=== PATIENT | female | born 2000 | race Caucasian/White ===

== ENCOUNTER 2021-10-06 08:25 | Outpatient (CLI) | payer BC, SELFPAY ==
[2021-10-09 00:06] LABS: QNTFERON TB Mitogen Value > 10.00 IU/mL (.); QNTFERON TB Nil Value 0.04 IU/mL (.); QNTFERON TB1+ Ag Value 0.04 IU/mL (.); QNTFERON TB2+ Ag Value 0.05 IU/mL (.)
[2021-10-09 16:14] LABS: QNTIFERON TB Positive Criteria Negative (Negative)
== END 2021-10-06 23:59 | disposition home or self-care (01) ==
PROVIDERS: Visit Provider Student in an Organized Health Care Education/Training Program
DX: Z01.84 Encounter for antibody response examination (principal)
CPT/HCPCS: 36415; 86480

== ENCOUNTER 2022-07-24 09:14 | Emergency (ER) | payer BC, SELFPAY ==
[2022-07-24 09:16] VITALS: BP 127/75; PULSE 59; RESP 14; TEMP 36.7; O2SAT 100; BMI 25.1
--- NOTE | 2022-07-24 10:30 | EX.ED.VIS.EY ---
HPI History of Present Illness Chief Complaint: Eye Problem Informant: patient Onset/Context/Timing Location: Left Eye Onset: Days Context: Gradual Onset Timing: Continuous Worsened by: Nothing Relieved by: Ice Associated Symptoms Associated Symptoms - Eyes: Crusting, Drainage, Eyelid swelling and Redness History of injury: Uncertain Visual correction: None Narrative Narrative: Patient presents with redness and swelling around her left eye that has been getting worse over the last 4 days. [facility] and was given a prescription for cephalexin. Patient has been taking this with no improvement. Patient does admit to some mild matting and crusting of her eye. Patient denies any fevers or chills. Patient denies any visual changes. Patient is unsure if something got into her eye a few days ago. Patient also has a rash over her right hip area. Patient states this began about the same time that her eye redness and swelling started. PFSH PFSH Medical History no medical history no medical history Home Medications sulfacetamide sodium 10 % eye drops 1 drp ophthalmic (eye) Q3H 7 days #15 mL 07/22/22 [Rx Last Taken Unknown] amoxicillin 875 mg-potassium clavulanate 125 mg tablet 875 mg PO Q12H #20 TABLETS 07/24/22 [Rx Last Taken Unknown] Allergy/AdvReac Type Severity Reaction Status Date / Time No Known Allergies Allergy Verified 07/24/22 09:16 Surgical History no surgical history no surgical history Social History Smoking Status: Never smoker ROS ROS ED Constitutional Constitutional ED: Denies chills or fever(s) Eyes Eyes: Denies blurry vision or change in vision ENT ENT ED: Denies rhinorrhea or sore throat Cardiovascular Cardiovascular: Denies chest pain or palpitations Respiratory/Chest Respiratory/Chest: Denies cough or dyspnea Gastrointestinal Gastrointestinal: Denies nausea or vomiting Genitourinary Genitourinary ED: Denies dysuria or hematuria Musculoskeletal Musculoskeletal: Denies back pain or neck pain Integumentary Reports rash; Denies abscess Neurologic Neurologic: Denies headache(s) or weakness Allergic/Immunologic Allergic/Immunologic ED: Denies mouth swelling or urticaria EXAM Physical Exam Const Vital Signs: 07/24/22 09:16 Temperature 98.0 F Temperature Source Temporal Pulse Rate 59 L Respiratory Rate 14 Blood Pressure 127/75 H Blood Pressure Mean 92 Pulse Ox 100 Oxygen Delivery Method Room Air Positive well nourished and well developed General Appearance ED: well developed and NAD HEENT atraumatic Eyes Eyes Narrative: Pupils are equal, round, and reactive to light bilaterally. Extraocular muscles are intact. Conjunctiva is clear. Anterior chamber is clear. There is no hyphema. There is edema and erythema of the upper and lower eyelids on the left. There is mild tenderness. There are no foreign bodies visualized. There is no matting or crusting. There is no discharge or drainage. There is no pain with extraocular motion. Neck supple and no JVD Resp normal respiratory effort and clear to auscultation bilaterally Cardio regular rate and regular rhythm Neuro oriented x3, CN's II-XII intact bilaterally, moves all extremities and no sensory deficits noted Sensorium / Orientation: alert Motor Exam: strength 5/5 throughout Skin Skin Narrative: There is a small maculopapular rash over the right iliac crest area. There are no vesicles or pustules. There is no discharge or drainage. There are no petechia. There is no involvement of the mucous membranes. MDM MDM MDM Narrative Medical decision making narrative: Patient was given dose of Ancef here. Tetracaine and fluorescein dye was applied to the left eye. Under slit-lamp examination, there is no corneal abrasion or ulcer noted. Anterior chamber was clear. There is no hyphema. There is no cell or flare. There are no foreign bodies noted. CBC and comprehensive metabolic profile were obtained and were within normal limits. Serum hCG was negative. CT scan of the orbits was obtained. There is preseptal cellulitis and swelling. There is no orbital cellulitis. There is no evidence of any abscess. This was interpreted by the radiologist and reviewed by myself. Patient is feeling better. Patient was instructed to stop taking the cephalexin. Patient was given a prescription for Augmentin. Patient was instructed to follow-up with her primary care physician in 5 to 7 days. Patient understood and was agreeable with the plan. All questions were answered. Lab Data Attestation: I reviewed the patient's lab results. Discharge Plan Triage Chief Complaint: Eye Problem ED Provider: Damian Gonzalez Dx/Rx/DC Orders Clinical Impression: Periorbital cellulitis of left eye Instructions: ED Cellulitis, Facial Prescriptions: New amoxicillin-pot clavulanate [amoxicillin-pot clavulanate] 875-125 mg tablet 875 mg PO Q12H Qty: 20 0RF Discontinued cephalexin 500 mg capsule 500 mg PO Q12H 7 Days Qty: 14 0RF No Action sulfacetamide sodium 10 % drops 1 drp ophthalmic (eye) Q3H 7 Days Qty: 15 0RF Primary Care Provider: Damian Ventura Referrals: Damian Ventura, [Primary Care Provider] - 3-5 Days Disposition Disposition: Home, Self Care
--- NOTE | 2022-07-24 10:36 | CT_ITS ---
EXAM: CT ORBITS WITH INTRAVENOUS CONTRAST CLINICAL INDICATION: Edema -- Periorbital cellulitis versus orbital cellulitis TECHNIQUE: Helically acquired images were obtained of the orbits. Multiplanar reformations were reviewed. Study was performed with intravenous contrast. This CT exam was performed using one or more of the following dose reduction techniques: automated exposure control, adjustment of the mA and/or kV according to patient size, and/or use of iterative reconstruction technique. This report was created using [employer] report [employer] technology. CONTRAST: IV 100mL Isovue-370 COMPARISON: None. FINDINGS: ORBITS: Both globes are unremarkable. Extraocular muscles are normal. Retrobulbar fat appears unremarkable. SINUSES: Unremarkable as visualized. No acute sinusitis. BONES/JOINTS: No acute fracture. SOFT TISSUES: Left facial soft tissue edema noted. There is preseptal soft tissue thickening of the left orbit. No evidence of soft tissue abscess. CT/Orb Sella Post Fossa Ear W/CON IMPRESSION: Left facial and preseptal left orbital edema. No evidence of abscess. Normal intraorbital structures. Electronically Signed: Christofer Elkins MD at 11:25 EDT ,
[2022-07-24 10:59] LABS: Absolute Lymphocyte Count 1.81 X10^3/uL (0.83-4.51); Basophil# 0.06 X10^3/uL; Basophil% 1.1 % (0-1); Eosinophil# 0.25 X10^3/uL; Eosinophils% 4.5 % (0-5); Hematocrit 37.3 % (37-47); Hemoglobin 12.5 g/dL (12.0-15.0); Lymphocyte # 1.81 X10^3/ul (0.83-4.51); Lymphocyte % 32.3 % (19-41); Mean Corp Hgb Conc 33.5 g/dL (32-36); Mean Corpuscular Hgb 30.3 pg (27.0-32.0); Mean Corpuscular Volume 90.3 fL (81-99); Mean Platelet Vol. 9.5 fl (6.2-12.0); Monocyte# 0.44 X10^3/uL; Monocyte% 7.9 % (0-10); NRBC Flagged by Analyzer 0 % (0-5); Neutrophil # 3.03 X10^3/uL (2.7-7.7); Platelet Count 192 K/mm3 (150-450); RBC Distribution Width CV 12.3 % (11.6-14.6); RBC Distribution Width SD 40.6 fl (35.1-43.9); Red Blood Count 4.13 M/mm3 (4.2-5.4); White Blood Count 5.6 K/mm3 (4.4-11.0)
[2022-07-24 11:06] LABS: Internal QC Validated? YES +Cl - CLEAR BKGD; Pregnancy, Serum, hCG Quali. NEGATIVE Negative
[2022-07-24 11:16] LABS: ALB/GLOB Ratio 1.4 RATIO (0.9-2.4); AST(SGOT) 18 U/L (15-37); Alanine Aminotransfer ALT/SGPT 35 U/L (13-56); Albumin, Serum 3.8 g/dL (3.2-5.0); Alkaline Phosphatase 50 U/L (45-117); Anion Gap 4 (5-15); BUN 15 mg/dL (7-18); BUN/Creat Ratio 17.7 RATIO (10-20); Chloride 110 mmol/L (98-107); Creatinine, Serum 0.85 mg/dL (0.55-1.02); EST Glomerular Filtration Rate 89 mL/min (>60); Est Glom Filt Rate - Afr Amer 108 mL/min (>60); Estimated Creatinine Clearance 93.42 ml/min; Globulin 2.8 g/dL (2.2-4.2); Glucose 95 mg/dL (74-106); Potassium 4.2 mmol/L (3.5-5.1); Protein, Total 6.6 g/dL (6.4-8.2); Sodium Level 141 mmol/L (136-145)
[2022-07-24] MEDS: Fluorescein 1 MG STRIP 1 STRIP OPHTHALMIC (11:24)
[2022-07-24] MEDS: Cefazolin 1 GM/50 ML BAG IV (11:25)
[2022-07-24] MEDS: Tetracaine 0.5% Ophthalmic Bottle 1 DRP OPHTHALMIC (11:25)
== END 2022-07-24 12:32 | disposition home or self-care (01) ==
PROVIDERS: Emergency Provider Emergency Medicine; PCP Student in an Organized Health Care Education/Training Program; Visit Provider Emergency Medicine
DX: L03.213 Periorbital cellulitis (principal); R21 Rash and other nonspecific skin eruption
CPT/HCPCS: 70481; 80053; 84703; 85025; 96365; 99284; Q9967; A4216

== ENCOUNTER → 2022-11-07 | Outpatient (CLI) | payer BC, SELFPAY ==
[2022-11-07 10:26] LABS: Absolute Lymphocyte Count 1.65 X10^3/uL (0.83-4.51); Absolute Neutrophil Count 3.3 X10^3/uL (2.0-7.7); Basophil# 0.07 X10^3/uL; Basophil% 1.3 % (0-1); Eosinophil# 0.13 X10^3/uL; Eosinophils% 2.4 % (0-5); Hematocrit 35.8 % (37-47); Hemoglobin 11.9 g/dL (12.0-15.0); Lymphocyte # 1.65 X10^3/ul (0.83-4.51); Lymphocyte % 30.4 % (19-41); Mean Corp Hgb Conc 33.2 g/dL (32-36); Mean Corpuscular Volume 93.2 fL (81-99); Monocyte# 0.27 X10^3/uL; NRBC Flagged by Analyzer 0 % (0-5); Neutrophil % 60.7 % (47-70); Platelet Count 208 K/mm3 (150-450); RBC Distribution Width SD 40.8 fl (35.1-43.9); Red Blood Count 3.84 M/mm3 (4.2-5.4); White Blood Count 5.4 K/mm3 (4.4-11.0)
[2022-11-07 11:18] LABS: ALB/GLOB Ratio 1.4 RATIO (0.9-2.4); AST(SGOT) 19 U/L (15-37); Alanine Aminotransfer ALT/SGPT 25 U/L (13-56); Albumin, Serum 4.2 g/dL (3.2-5.0); Alkaline Phosphatase 47 U/L (45-117); Anion Gap 7 (5-15); BUN 14 mg/dL (7-18); BUN/Creat Ratio 15.6 RATIO (10-20); Calcium,Total 9.2 mg/dL (8.5-10.1); Chloride 107 mmol/L (98-107); Cholesterol 182 mg/dL (200); EST Glomerular Filtration Rate 83 mL/min (>60); Est Glom Filt Rate - Afr Amer 101 mL/min (>60); Globulin 2.9 g/dL (2.2-4.2); Glucose 94 mg/dL (74-106); High Density Lipoprotein 83 mg/dL; Potassium 3.9 mmol/L (3.5-5.1); Protein, Total 7.1 g/dL (6.4-8.2); Sodium Level 140 mmol/L (136-145); Thyroid Stim Hormone (TSH) 2.97 uIU/mL (0.358-3.74); Triglycerides 38 mg/dL; Very Low Density Lipoprotein 8 mg/dL (5-40)
[2022-11-09 22:07] LABS: QNTFERON TB Mitogen Value > 10.00 IU/mL (.); QNTFERON TB Nil Value 0.13 IU/mL (.); QNTFERON TB1+ Ag Value 0.02 IU/mL (.); QNTFERON TB2+ Ag Value 0.02 IU/mL (.)
[2022-11-11 18:57] LABS: QNTIFERON TB Positive Criteria Negative (Negative)
== END | disposition home or self-care (01) ==
LOC: LAB 09:56
PROVIDERS: PCP Student in an Organized Health Care Education/Training Program; Referring Provider Student in an Organized Health Care Education/Training Program; Visit Provider Student in an Organized Health Care Education/Training Program
DX: Z01.84 Encounter for antibody response examination (principal)
CPT/HCPCS: 36415; 80053; 80061; 84443; 85025; 86480

== ENCOUNTER → 2023-09-30 | Outpatient (CLI) | payer BC, SELFPAY ==
--- OUTSIDE RECORDS SUMMARY | 2023-09-30 07:52 | XMS RPT_ITS | CCD ---
Author Name Unknown Address [address] [place] [address] Organization [facility] Care Team Providers Care Molding Sander Name Role Phone Rishi Venturaic Unavailable Unavailable Ericzner Damian C Unavailable Unavailable Ericzner Damian C Primary Care Provider [phone] Damian Ventura Unavailable Unavailable Medications Completed/Discontinued Medications Medication Drug Class(es) Dates Sig (Normalized) Sig (Original) 200 actuat albuterol 0.09 mg/actuat metered dose inhaler (1 source) beta2-Adrenergic Agonist Start: 04-08-2019 take 2 puff(s) by inhalation every six hours ProAir HFA 108 (90 Base) MCG/ACT Inhalation Aerosol Solution USE 2 PUFFS EVERY 6 HOURS DIRECTED. Quantity: 1 Refills: 2 Ericzner Damian FARIAS Start : 08-Apr-2019 Active 8.5 GM Inhaler No Reported Medications (1 source) No Reported Medications Refills: 0 Active Problems Problem Classification Problem Date Documented Da te Episodic/Chronic Immunizations and screening for infectious disease (1 source) Immunization due; Translations: [Need for prophylactic vaccination and inoculation against unspecified single disease] Episodic Residual codes; unclassified (4 sources) Immunization due; Translations: [Immunization due] NEGATED: Highlighted row has not occurred!Residual codes; unclassified (14 sources) Disease Episodic Results Test Name Value Interpretation Reference Range Facil ity Vital Signs Date Time Vital Sign Value Performing Clinician Faci lity 10-04-2019 11:05-0500 BMI (Body Mass Index) 24.46 kg/m2 Damian Ventura [employer] Work Phone: 10-04-2019 11:05-0500 Body weight 66.68 kg Damian Ventura [facility] [employer] Work Phone: 10-04-2019 11:05-0500 BP Diastolic 58 mm[Hg] Damian Panzner [facility] Work Phone: 10-04-2019 11:05-0500 BP Systolic 110 mm[Hg] Damian Panzner [facility] Work Phone: 10-04-2019 11:05-0500 BSA (Body Surface Area) 1.74 m2 Damian Panzner [facility] Work Phone: 10-04-2019 11:05-0500 Height 165.1 cm Damian Panzner [facility] Work Phone: 10-04-2019 11:05-0500 Pulse (Heart Rate) 68 /min Damian Panzner [facility] Work Phone: 10-04-2019 11:05-0500 78 1 Damian Panzner [facility] Work Phone: Encounters Encounter Date Encounter Type Care Provider Facility Start: 09-29-2020 End: 09-29-2020 Patient encounter procedure Damian C Ericzner Work Phone: [facility] Start: 09-29-2020 Results Only Damian C Ericzner Work Phone: [facility] Start: 11-22-2019 Nursing evaluation o f patient and report Damian Ericzner [facility] Work Phone: Start: 10-04-2019 Patient encounter procedure Damian Panzner [facility] Work Phone: Start: 04-08-2019 Patient encounter procedure Damian Panzner [facility] Work Phone: Start: 12-21-2017 Patient encounter procedure Damian Ericzner -[facility] Work Phone: Procedures Date Procedure Procedure Detail Performing Clinician Start: 09-29-2020 BLOOD TB SCREEN, INCUBATED Damian C Emilieer Work Phone: Start: 09-29-2020 CBC + DIFF Damian C Reyes zner Work Phone: Start: 09-29-2020 HEP B SURF AB QUANT Socorro c C Panzner Work Phone: Start: 09-29-2020 HEP B SURF AG CONFRM Er ic C Ericzner Work Phone: Start: 09-29-2020 LIPID PANEL BASIC Damian C Emilieer Work Phone: Start: 09-29-2020 SARS-COV-2 ANTIBODY, IGG Damian C Emilieer Work Phone: Start: 09-29-2020 TSH BLD Damian C Eric zner Work Phone: Start: 09-29-2020 VARICELLA ZOSTER IGG Er ic C Ericzner Work Phone: Start: 10-04-2019 Mycobacterium tuberc ulosis stimulated gamma interferon [Interpretation] in Blood Qualitative Damian Emilierishi Start: 10-04-2019 Follow-up visit Start: 09-06-2019 Blood count complete auto&auto difrntl wbc Damian Panzner Start: 09-06-2019 Comprehensive metabo lic 2000 panel Damian Panzner Start: 09-06-2019 Lipid panel Damian Panzn er Start: 09-06-2019 TSH WITH REFLEX TO F REE T4 IF ABNORMAL Damian Ericzner Start: 04-08-2019 Follow-up visit Plan of Treatment Date Care Activity Detail Author Start: 12-22-2027 Urine microalbumin profile DTAP,TDAP ,TD (2 - Td) [facility] Start: 05-26-2020 Influenza vaccination INFLUENZA (#1) [facility] Start: 2018 CHLAMYDIA SCREENING (18-) CHLAMYDIA SCREENING (18-24) [facility] Start: 2018 GC (GONORRHEA) SCREE BENNY (18-24) GC (GONORRHEA) SCREENING (18-24) [facility] Start: 2018 HEPATITIS C SCREENING HEPATITIS C SC BRIJESHNING [facility] Start: 2018 HIV SCREENING HIV SCREENING [facility] Start: 2011 HPV VACCINE (1 - 2-d ose series) HPV VACCINE (1 - 2-dose series) [facility] Start: 2010 MENINGOCOCCAL B: Con education and training coordinator based on risk (1 of 2 - Risk Bexsero 2-dose series) MENINGOCOCCAL B: Consider based on risk (1 of 2 - Risk Bexsero 2-dose series) [facility] Immunizations Immunization Date Immunization Notes Care Provider Avery lacy 05-05-2020 hepatitis B vaccine, pediatric or pediatric/adolescent dosage Damian Ventura [facility] 11-22-2019 hepatitis B vaccine, pediatric or pediatric/adolescent dosage; Translations: [Hepatitis B, Ped/Adol] [facility] Work Phone: 11-22-2019 measles, mumps and rubella virus vaccine; Translations: [MMR] [facility] Work Phone: 10-04-2019 measles, mumps and rubella virus vaccine; Translations: [MMR] [facility] Work Phone: 10-04-2019 hepatitis B vaccine, pediatric or pediatric/adolescent dosage; Translations: [Hepatitis B, Ped/Adol] [facility] Work Phone: 12-21-2017 tetanus toxoid, redu mallorie diphtheria toxoid, and acellular pertussis vaccine, adsorbed; Translations: [Tdap (Adacel)] [facility] Work Phone: Payers Date Payer Category Payer Unknown MMO MMO [employer] [id number] 2019-Present PPO 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 (finding) [facility] Start: 2000 Sex Assigned At Not on file C [facility] Exposure to SARS-CoV-2 (event) Not sure [facility] NEGATED: Highlighted row - - [employer] Work Phone: Functional Status Date Assessment Result Facility NEGATED: Highlighted row Functional performance Functional status health issues are not documented Disease [employer] Work Phone: Mental Status Date Assessment Result Facility NEGATED: Highlighted row Cognitive function [Interpretation] Cognitive status health issues are not documented Disease [employer] Work Phone: Instructions Note Date & Type Note Facility [employer] Work Phone: Family History Grandmother Name Dates Details Family history of hypertensi on(V17.49, Z82.49) Status:Active Grandmother Name Dates Details Family history of cardiac di sorder(V17.49, Z82.49) Status:Active Family history of cardiac pa cemaker(V17.49, Z82.49) Status:Active Grandmother Name Dates Details Family history of hypertensi on(V17.49, Z82.49) Status:Active Grandmother Name Dates Details Family history of cardiac di sorder(V17.49, Z82.49) Status:Active Family history of cardiac pa cemaker(V17.49, Z82.49) Status:Active Grandmother Name Dates Details Family history of hypertensi on(V17.49, Z82.49) Status:Active Grandmother Name Dates Details Family history of cardiac di sorder(V17.49, Z82.49) Status:Active Family history of cardiac pa cemaker(V17.49, Z82.49) Status:Active Grandmother Name Dates Details Family history of hypertensi on(V17.49, Z82.49) Status:Active Grandmother Name Dates Details Family history of cardiac di sorder(V17.49, Z82.49) Status:Active Family history of cardiac pa cemaker(V17.49, Z82.49) Status:Active Grandmother Name Dates Details Family history of hypertensi on(V17.49, Z82.49) Status:Active Grandmother Name Dates Details Family history of cardiac di sorder(V17.49, Z82.49) Status:Active Family history of cardiac pa cemaker(V17.49, Z82.49) Status:Active Summary Purpose Advance Directives No Advanced Directives Records FoundNo Advanced Directives Records Found Additional Source Comments INFORMATION SOURCE (unrecogn ized section and content) DATE CREATED AUTHOR AUTHOR'S ORGANLINDA ATION 03/02/2020 [employer] Source Comments (unrecognize d section and content) In the event this informatio n is protected by the Federal Confidentiality of Alcohol and Drug Abuse Patient Records regulations: The Federal rules restrict any use of the information to criminally investigate or prosecute any alcohol or drug abuse patient.[facility] FOR RECORDS PERTAINING TO PATIENTS WHO ARE OR HAVE BEEN ENROLLED IN A CHEMICAL DEPENDENCY/SUBSTANCEABUSE PROGRAM, SOME INFORMATION MAY BE OMITTED. This clinical summary was aggregated from multiple sources. Caution should be exercised in using it in the provision of clinical care. This summary normalizes information from multiple sources, and as a consequence, information in this document may materially change the coding, format and clinical context of patient data. In addition, data may be omitted in some cases. CLINICAL DECISIONS SHOULD BE BASED ON THE PRIMARY CLINICAL RECORDS. [facility]. provides no warranty or guarantee of the accuracy or completeness of information in this document.
[2023-09-30 08:11] LABS: Absolute Lymphocyte Count 1.86 X10^3/uL (0.83-4.51); Absolute Neutrophil Count 3.1 X10^3/uL (2.0-7.7); Basophil# 0.06 X10^3/uL; Basophil% 1.1 % (0-1); Eosinophil# 0.21 X10^3/uL; Eosinophils% 3.8 % (0-5); Hematocrit 39.6 % (37-47); Hemoglobin 13.2 g/dL (12.0-15.0); Lymphocyte # 1.86 X10^3/ul (0.83-4.51); Lymphocyte % 33.5 % (19-41); Mean Corp Hgb Conc 33.3 g/dL (32-36); Mean Corpuscular Hgb 30.3 pg (27.0-32.0); Mean Corpuscular Volume 90.8 fL (81-99); Mean Platelet Vol. 9.7 fl (6.2-12.0); Monocyte# 0.28 X10^3/uL; NRBC Flagged by Analyzer 0 % (0-5); Neutrophil # 3.13 X10^3/uL (2.7-7.7); Neutrophil % 56.2 % (47-70); Platelet Count 208 K/mm3 (150-450); RBC Distribution Width CV 12.6 % (11.6-14.6); RBC Distribution Width SD 41.4 fl (35.1-43.9); Red Blood Count 4.36 M/mm3 (4.2-5.4); White Blood Count 5.6 K/mm3 (4.4-11.0)
[2023-09-30 08:57] LABS: ALB/GLOB Ratio 1.2 RATIO (0.9-2.4); AST(SGOT) 11 U/L (15-37); Alanine Aminotransfer ALT/SGPT 19 U/L (13-56); Albumin, Serum 3.8 g/dL (3.2-5.0); Alkaline Phosphatase 48 U/L (45-117); Anion Gap 3 (5-15); BUN 14 mg/dL (7-18); BUN/Creat Ratio 17.2 RATIO (10-20); Calcium,Total 9.2 mg/dL (8.5-10.1); Chloride 108 mmol/L (98-107); Cholesterol 172 mg/dL (200); Creatinine, Serum 0.82 mg/dL (0.55-1.02); EST Glomerular Filtration Rate 92 mL/min (>60); Est Glom Filt Rate - Afr Amer 112 mL/min (>60); Globulin 3.2 g/dL (2.2-4.2); Glucose 101 mg/dL (74-106); High Density Lipoprotein 66 mg/dL; Potassium 4.1 mmol/L (3.5-5.1); Sodium Level 139 mmol/L (136-145); Thyroid Stim Hormone (TSH) 3.51 uIU/mL (0.358-3.74); Triglycerides 38 mg/dL; Very Low Density Lipoprotein 8 mg/dL (5-40)
[2023-10-04 07:08] LABS: QNTFERON TB Mitogen Value > 10.00 IU/mL (.); QNTFERON TB Nil Value 0.04 IU/mL (.); QNTFERON TB1+ Ag Value 0.03 IU/mL (.); QNTFERON TB2+ Ag Value 0.07 IU/mL (.); QNTIFERON TB Positive Criteria Negative (Negative)
== END | disposition home or self-care (01) ==
LOC: LAB 07:50
PROVIDERS: PCP Student in an Organized Health Care Education/Training Program; Referring Provider Student in an Organized Health Care Education/Training Program; Visit Provider Student in an Organized Health Care Education/Training Program
DX: Z01.84 Encounter for antibody response examination (principal)
CPT/HCPCS: 36415; 80053; 80061; 84443; 85025; 86480

== ENCOUNTER 2023-12-07 08:07 | Day surgery (SDC) | payer BC, SELFPAY ==
[2023-12-07] VITALS (8 sets, daily range): BP systolic 92–122; BP diastolic 54–89; PULSE 63–83; RESP 16–18; TEMP 36.1–36.8; O2SAT 98–100; BMI 25.0
--- NOTE | 2023-12-07 08:14 | HP.PCM_ITS ---
History and Physical Date of Admission: 12/07/23 Date of Service: 11/29/23 MR#: [id number] Acct: [id number] Name: LEEANNE LINDSEY Rep #: [id number] : 2000 Provider: Dr. Barbara Grace MD Age/Sex: 23/F Location: [facility] Status: Signed Intake Vital Signs 11/05/2307:34 11/28/2412:44 Height 5 ft 5 in 5 ft 5 in Weight: 151 lb 6 oz BMI 25.2 BP 122/69 H Blood Pressure Location Rt brachial Position Sitting Respiration 18 Pulse 65 Pulse Source Monitor Temp 97.6 F L Temp Source Temporal Pulse Oximetry (%) 100 Oxygen Delivery Method room air Intake Visit Reasons: Liooma back Chief Complaint: lipoma back Electric Motor Fitter Required: No Accompanied by: Mother Is patient in pain?: No Allergies No Known Allergies Allergy (Verified 11/29/23 13:45) PFSH Surgical History (Updated 11/29/23 @ 13:43 by Mindi Xavier LPN) H/O wisdom tooth extraction Social History (Updated 11/29/23 @ 13:44 by Mindi Xavier LPN) Smoking Status: Never smoker alcohol intake: never substance use type: does not use HPI HPI HPI: 23-year-old female presents due to left lower back subcutaneous mass. Patient states she had this for about 6 years states it has been about the same in size. Patient states occasionally when she is biking she may have some numbness in her left toes and heel as she is an ER position and seems like this pushes more on her back at this position. Patient is interested in an excision. ROS General General: No weight change, appetite, fatigue, colon cancer, breast cancer or w eakness HEENT HEENT: No difficulty swallowing, eye injury, eye surgery, swollen glands or hoarseness Endo Endocrine: No thyroid disease, diabetes mellitus, thyroid cancer, Hair loss, heat intolerance or cold intolerance Skin Skin: No rash or changing moles Musc Musculoskeletal: No back problems, arthritis, rheumatoid arthritis, gout or joint pain Cardio Cardiovascular: No murmur, pacemaker, heart disease, atrial fibrillation, high blood pressure, heart attack, heart stent, palpitations, shortness of breat with exertion or chest pain Psych Psychiatric: No depression, anxiety or hearing voices Resp Respiratory: No shortness of breath, No sleep apnea, No cough, No COPD, No asthma, No emphysema and No wheezing Gastro Gastrointestinal: No abdominal pain, No nausea or vomiting, No diarrhea, No c onstipation, No blood in stool, No acid reflux, No hemorrhoids, No ulcers, No gallbladder problem and No black,tarry stools Alexander Hematologic: No blood thinners, No blood disorders, No bleeding, No anemia and No blood clots Neuro Neurologic: Yes numbness, Yes tingling and No weakness Exam Const General: cooperative, healthy appearing, comfortable and no acute distress [facility] Head: normocephalic and atraumatic Neck Neck: supple Resp Effort & Inspection: normal respiratory effort Cardio Rate: regular rate GI Inspection: non-distended Palpation: soft, no hernias and nontender Skin General: no rashes or lesions noted Other: Left lower back subcutaneous mass?mobile, soft, about 7 x 7 cm. Clinically feels like a lipoma, bedside ultrasound only shows normal fat tissue in this area difficult to appreciate borders on bedside ultrasound. Neuro General: CN's II-XI intact bilaterally Extrem General: normal to inspection Psych Mental Status: mental status grossly normal Attitude: cooperative Assessment and Plan Assessment and Plan (1) Lipoma of back: Status: Acute Plan Discussed with patient and her mom that this could be excised would plan for in the OR under MAC sedation-- Excision of left lower back subcutaneous mass. Patient is getting beginning of January and going to [place] for her honeymoon. Discussed risk including but not limited to infection, bleeding, need for further excision. Patient and her mom had no further questions this time. Barbara Grace M.D. Pager: [phone] [facility] [address] [place] [address], [facility], [address] [place] [address] Office: [phone] Coding Level of Care Code Off vis,new,level 3 Diagnoses Lipoma of back D17.1 12/01/23 0927 <Electronically signed by Barbara Grace MD> Date Barbara Grace MD
--- OUTSIDE RECORDS SUMMARY | 2023-12-07 08:28 | XMS RPT_ITS | CCD ---
Author Name Unknown Address [address] [place] [address] Organization [facility] Care Team Providers Care Wood Ski Maker Name Role Phone Rishi Venturaic Unavailable Unavailable Ericzner Damian C Unavailable Unavailable Ericzner Damian C Primary Care Provider Damian Ventura Unavailable Unavailable Medications Completed/Discontinued Medications [...] (Body Mass Index) 24.46 kg/m2 Damian Ventura [facility] Work Phone: 10-04-2019 11:05-0500 Body weight 66.68 kg Damian Ventura [facility] Work Phone: 10-04-2019 11:05-0500 BP Diastolic 58 mm[Hg] Damian Panzner [facility] Work Phone: 10-04-2019 11:05-0500 BP Systolic 110 mm[Hg] Damian Panzner [facility] Work Phone: 10-04-2019 11:05-0500 BSA (Body Surface Area) 1.74 m2 Damian Panzner [facility] Work Phone: 10-04-2019 11:05-0500 Height 165.1 cm Damian Panzner [facility] [facility] Work Phone: 10-04-2019 11:05-0500 Pulse (Heart Rate) 68 /min Damian Panzner [facility] Work Phone: 10-04-2019 11:05-0500 78 1 Damian Panzner [facility] Work Phone: Encounters Encounter Date Encounter Type Care Provider Facility Start: 09-29-2020 End: 09-29-2020 Patient encounter procedure Damian C Ericzner Work Phone: [facility] Start: 09-29-2020 Results Only Damian C Ericzner Work Phone: [facility] Start: 11-22-2019 Nursing evaluation o f patient and report Damian Ericzner [facility] Work Phone: Start: 10-04-2019 Patient encounter procedure Damian Panzner [facility] Work Phone: Start: 04-08-2019 Patient encounter procedure Damian Panzner [facility] Work Phone: Start: 12-21-2017 Patient encounter procedure Damian Ericzner -[facility] Work Phone: Procedures Date Procedure Procedure Detail [...] microalbumin profile DTAP,TDAP ,TD (2 - Td) [facility] Start: 05-26-2020 Influenza vaccination INFLUENZA (#1) [facility] Start: 2018 CHLAMYDIA SCREENING (18-) CHLAMYDIA SCREENING (18-24) [facility] Start: 2018 GC (GONORRHEA) SCREE BENNY (18-24) GC (GONORRHEA) SCREENING (18-24) [facility] Start: 2018 HEPATITIS C SCREENING HEPATITIS C SC BRIJESHNING [facility] Start: 2018 HIV SCREENING HIV SCREENING [facility] Start: 2011 HPV VACCINE (1 - 2-d ose series) HPV VACCINE (1 - 2-dose series) 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 Immunizations Immunization Date Immunization Notes Care Provider Avery lacy 05-05-2020 hepatitis B vaccine, pediatric or pediatric/adolescent dosage Damian Ventura [facility] 11-22-2019 hepatitis B vaccine, pediatric or pediatric/adolescent dosage; Translations: [Hepatitis B, Ped/Adol] [facility]: 11-22-2019 measles, mumps and rubella virus vaccine; Translations: [MMR] [facility] Work Phone: 10-04-2019 measles, mumps and rubella virus vaccine; Translations: [MMR] [facility] Work Phone: 10-04-2019 hepatitis B vaccine, pediatric or pediatric/adolescent dosage; Translations: [Hepatitis B, Ped/Adol] [facility] Work Phone: 12-21-2017 tetanus toxoid, redu mallorie diphtheria toxoid, and acellular pertussis vaccine, adsorbed; Translations: [Tdap (Adacel)] [facility] Work Phone: Payers Date Payer Category Payer Unknown MMO MMO [employer] [id number] 2019-Present PPO [id number] Social History Date Type Detail Facility Start: 09-29-2020 Tobacco smoking status NHIS Never smoker [facility] Start: 09-29-2020 Tobacco use and exposure Never used [facility] Start: 09-29-2020 Alcohol intake Current non-dr hearth feeder of alcohol (finding) [facility] Start: 2000 Sex Assigned At Not on file C [facility] Exposure to SARS-CoV-2 (event) Not sure [facility] NEGATED: Highlighted row - - [employer] Work Phone: Functional Status Date Assessment Result Facility NEGATED: Highlighted row Functional performance Functional status health issues are not documented Disease [facility] Work Phone: Mental Status Date Assessment Result Facility NEGATED: Highlighted row Cognitive function [Interpretation] Cognitive status health issues are not documented Disease [facility] Work Phone: Instructions Note Date & Type Note Facility [employer] Work Phone: Family History Grandmother Name Dates [...] DATE CREATED AUTHOR AUTHOR'S ORGANLINDA ATION 03/02/2020 [employer] Comments (unrecognize d section and content) In the event this informatio n is protected by the Federal Confidentiality of Alcohol and Drug Abuse Patient Records regulations: The Federal rules restrict any use of the information to criminally investigate or prosecute any alcohol or drug abuse patient.[facility] FOR RECORDS PERTAINING TO PATIENTS WHO [...] BE BASED ON THE PRIMARY CLINICAL RECORDS. [employer] [facility]. provides no warranty or guarantee of the accuracy or completeness of information in this document.
[2023-12-07] MEDS: Lactated Ringers 1,000 ML 15 ML IV (08:40)
[2023-12-07 08:53] LABS: Internal QC Validated? YES +Cl - CLEAR BKGD; Pregnancy, Urine Negative Negative; Record Kit Lot#,Urine Preg 718086
[2023-12-07] MEDS: Cefazolin 2 GM in 0.9% Normal Saline (100mL Bag) 100 ML IV (09:02)
[2023-12-07] MEDS: Bupiv/Epi 0.25% 30 ML Vial (09:12)
--- NOTE | 2023-12-07 09:50 | LIP_PTH ---
PATHOLOGY RESULTS PATIENT: LEEANNE LINDSEY LOC: [facility] [place] [facility] U#:[id number] AGE/SX: 23/F ROOM: RE12/07/[address]: Dr. Barbara Grace MD : 2000 BED: DIS: 12/07/2023 SPEC #: [id number] RECD: 12/07/23 12:27 STATUS: MARLA RECecilio #: [id number] KIESHA: 12/07/23 09:[address]: Barbara Grace DEPT: SURGICAL PATHOLOGY RECD BY: Evi Brennan ENTERED: 12/07/23 12:28 SP TYPE: LIPOMA OTHR DR: Damian Ventura, DO Tissues: Soft tissues, NOS Procedures: Surgery Specimen Level III HEADER OPERATION: Excision, lipoma, lower back PRE-OP DIAGNOSIS: Lipoma of back TISSUE SUBMITTED: Left lower back lipoma MICROSCOPIC DIAGNOSIS Soft tissue mass of back, excision; Mature adipose tissue (lipoma). AM/mr 12/08/2023 MICROSCOPIC DESCRIPTION Slides are reviewed. GROSS DESCRIPTION Received in fixative is one container labeled with the patient's name and designated Left lower back lipoma. The specimen consists of multiple irregular fragments of mendiola-yellow adipose tissue that in aggregate measure 6.5 x 5.5 x 2.0 cm. Sections reveal yellow adipose cut surfaces without area hemorrhage necrosis or cystic degeneration. Optometrist President/Practice Owner sections are submitted in 4 cassettes. PRABHA/ 12/07/2023 TC: 1 CPT: 91359
--- NOTE | 2023-12-07 09:50 | PCM.OPRPT ---
Report of Operation Date of Procedure: 12/07/23 Pre-Operative Diagnosis: Left lower back lipoma Post-Operative Diagnosis: Same Surgery/Procedure Performed:: Excision of left lower back lipoma Surgeon: Barbara Grace aerospace products sales engineer: Sixto Barr Type of Anesthesia: MAC/Supplemental Anesthesiologist: Hair Ramirez Special Medications: Ancef 2 g IV x 1 Specimen's removed: Left lower back lipoma Estimated Blood Loss (mL): < 10 cc Description of Procedure: The patient was brought into the operating room and placed supine on operating table. A time-out was completed verifying correct patient, procedure, site, position and special equipment prior to beginning procedure. MAC anesthesia was induced. Bilateral arms were prepped and draped in usual sterile fashion. Local anesthesia of 0.25% Marcaine w epi was used for a total of 10 mL throughout the procedure. The skin of the left lower back overlying the lipoma was infiltrated with local anesthesia and incision was made with 15 blade scalpel. This was deepened with electrocautery and subcutaneous tissues. Lipoma was identified which had multiple small projections?measured 5 x 5 x 2-1/2 cm. Hemostasis was achieved with electrocautery. Incision was closed with subdermal suture of 3-0 Vicryl interrupted and the skin was closed 4-0 Monocryl running suture. OpSite was placed over the incision as well as her pressure dressing with 4 x 4's and tape. Patient tolerated the procedure well and was taken to the postsurgical care unit in stable condition. Complications none
--- NOTE | 2023-12-07 09:56 | DCINST_ITS ---
Discharge Instructions Diet Discharge Diet: Light diet - advance as tolerated Activity Discharge Activity: May Not Drive (For 24 hours or if having too much pain and cannot slam on the brakes.) and May Shower (In 24 hours) May shower in (days): 1 Additional Activity Instructions:: No strenuous activity for 1 week Dressing / Incision Call your doctor if your incision/area has: Continuous Slow Oozing, Sudden Increased Bleeding, Increased Pain/ Swelling, Increased Redness, Foul Smelling Discharge and Swelling at the incision site Call your doctor if you observe: Fever of 101 or Higher Remove Dressing in: 2 days Cleanse incision/area with: Soap & Water Additional Dressing/Incision Instructions:: Steri-Strips will fall off in 7 to 10 days, if they do not fall off okay to remove after 10 days. Pressure dressing placed with 4 x 4's and tape over the incision keep in place until tomorrow if you continue to place a pressure dressing in this area may have less of a seroma x 5 days. Can also wear spandex/compression shorts in place 4 x 4's and they are to avoid the tape. Follow Up Care Please Follow Up With: Barbara Grace MD When: Call the office for a follow-up appointment 2 weeks; after 5 PM and on the weekends call [phone] with any concerns. Test Results: Test results from this visit will be discussed in further detail at your follow- up appointment, if applicable. Discharge Plan Admission Attending Provider: Barbara Grace Primary Care Provider: Damian Ventura Discharge Orders/Prescriptions Prescriptions: Continued vitamin A 10,000 unit tablet 1,500 mcg PO DAILY cod liver oil Capsule 1 cap PO DAILY Pure Taurine 500 mg capsule 500 mg PO DAILY vit E-E [id number] 400-80-2 unit-mg-mg capsule 1 cap PO DAILY Referrals / Follow Up: Damian Ventura DO [Primary Care Provider] - Disposition Disposition (needs filled in before D/C Order can be placed): Home, Self Care
== END 2023-12-07 11:58 | disposition home or self-care (01) ==
LOC: SDC 08:09 → AC 08:11
PROVIDERS: Anesthesiology; PCP Student in an Organized Health Care Education/Training Program; Referring Provider Student in an Organized Health Care Education/Training Program; Visit Provider Surgery
PROC: (CPT 21931; principal; 2023-12-07 09:40)
DX: D17.1 Benign lipomatous neoplasm of skin and subcutaneous tissue of trunk (principal)
CPT/HCPCS: 21931; 00300; 81025; 88304; J7120; J2405

== ENCOUNTER → 2024-04-25 | Outpatient (CLI) | payer BC, SELFPAY ==
[2024-05-01 13:15] LABS: HPV Reflexed? NOT INDICATED
== END | disposition home or self-care (01) ==
LOC: LABSPEC 17:09
PROVIDERS: PCP Student in an Organized Health Care Education/Training Program; Referring Provider Nurse Practitioner Family; Visit Provider Nurse Practitioner Family
DX: Z01.419 Encounter for gynecological examination (general) (routine) without abnormal findings (principal)
CPT/HCPCS: 88175; G0145